=== PATIENT | female | born 1975 | race African-American/Black ===

== ENCOUNTER 2016-11-07 01:08 | Emergency (ER) | payer OTHER ==
[~2016-11-07] VITALS: Ht 170.2 cm; Wt 87.0 kg
[2016-11-07] MEDS ORDERED: SODIUM CHLORIDE 0.9% 1,000ML IVBOLUS ONE (01:30)
[2016-11-07] MEDS ORDERED: SODIUM CHLORIDE FLUSH 10ML SYR IVF ONE (01:30)
[2016-11-07 02:06] LABS: ASPARTATE AMINO TRANSFERASE 27 U/L (15-37); BLOOD UREA NITROGEN 9 mg/dL (7-18)
[2016-11-07 02:09] LABS: DAU SCREEN DISCLAIMER
[2016-11-07 03:20] VITALS: BP 138/94
== END 2016-11-07 03:47 | disposition home or self-care (01) ==
LOC: ED 03:42
DX: R56.9 Unspecified convulsions (principal); E66.9 Obesity, unspecified
CPT/HCPCS: 36415; 70450; 80053; 80307; 84703; 85025; 93005; 96360; 99285; J7030

== ENCOUNTER 2016-11-12 09:26 | Emergency (ER) | payer OTHER ==
[~2016-11-12] VITALS: Ht 170.2 cm; Wt 97.0 kg
[2016-11-12] MEDS ORDERED: SODIUM CHLORIDE 0.9% 1,000 ML IV ONE (11:53)
[2016-11-12] MEDS ORDERED: SODIUM CHLORIDE FLUSH 10ML SYR IVF ONE (12:00)
[2016-11-12] MEDS ORDERED: ONDANSETRON 2MG/ML, 2ML IVPush ONE (12:00)
[2016-11-12] MEDS ORDERED: PROCHLORPERAZINE 5 MG/ML, 2ML IVPush ONE (12:00)
[2016-11-12] MEDS ORDERED: DIPHENHYDRAMINE 50 MG/ML, 1ML IVPush ONE (12:00)
[2016-11-12] MEDS ORDERED: SODIUM CHLORIDE 0.9% 1,000ML IVBOLUS ONE (12:00)
[2016-11-12] MEDS ORDERED: PROCHLORPERAZINE 5 MG/ML, 2ML ONE (12:03)
[2016-11-12] MEDS ORDERED: ONDANSETRON 2MG/ML, 2ML ONE (12:03)
[2016-11-12] MEDS ORDERED: DIPHENHYDRAMINE 50 MG/ML, 1ML ONE (12:03)
[2016-11-12] MEDS ORDERED: PLEASE ENTER HEIGHT AND WEIGHT MC SCH (12:30)
[2016-11-12 12:34] LABS: BLOOD UREA NITROGEN 9 mg/dL (7-18)
[2016-11-12] MEDS ORDERED: GADOBUTROL 10 MMOL/10 ML PFS ONE (12:39)
[2016-11-12 13:50] VITALS: BP 118/75
== END 2016-11-12 13:52 | disposition home or self-care (01) ==
LOC: ED 12:14
DX: G43.011 Migraine without aura, intractable, with status migrainosus (principal); E66.9 Obesity, unspecified
CPT/HCPCS: 36415; 70553; 80048; 82040; 83735; 84703; 85025; 96361; 96374; 96375; 99285; A9585; J0780; J1200; J2405; J7030

== ENCOUNTER → 2017-01-07 | Outpatient (CLI) | payer OTHER | END | disposition home or self-care (01) | LOC: CARD 08:46 → EDSTATUS 09:00 | PROVIDERS: ATTEND Registered Nurse | DX: R56.9 Unspecified convulsions (principal) | CPT/HCPCS: 95819 ==